=== PATIENT | male | born 1995 | race Caucasian/White ===

== ENCOUNTER → 2016-05-31 | Outpatient (CLI) | payer OTHER ==
--- NOTE | 2016-05-31 07:51 | MR ---
EXAMINATION TYPE: MR elbow LT wo con DATE OF EXAM: 05/31/2016 6:59 AM COMPARISON: NONE HISTORY: Pain in left elbow Standard multiplanar, multisequence MRI departmental protocol Multiplanar, multisequence images of the left elbow were acquired. Diffusion weighted imaging was per formed. FINDINGS: There is thickening and mild increased signal involving the common extensor origin from the lateral e picondyle without tear felt to reflect lateral epicondylitis. Clinical correlation is advised. No uzma dence for bone marrow edema or avulsion. Medial tendinous group is intact. Visualized biceps tendon is of normal appearance without evidence for partial or complete tear. No fl uid is seen along the course of the biceps tendon. No evidence for joint effusion. No bone marrow edema or fracture identified. No cartilaginous defects seen. Muscular structures are unremarkable without evidence for muscular tear or intramuscular collection. Vascular and neural structures are grossly unremarkable. IMPRESSION: Correlate for lateral epicondylitis without tear.
== END | disposition home or self-care (01) ==
LOC: RADMRIMAIN 06:03
PROVIDERS: ATTEND Orthopaedic Surgery
DX: M25.522 Pain in left elbow (principal)